=== PATIENT | female | born 1955 | race Caucasian/White ===

== ENCOUNTER 2022-10-02 14:59 | Inpatient (IN) ==
[2022-10-02] MEDS ORDERED: Morphine 4 MG/ML VIAL (1 ml) IV PRN (15:16)
[2022-10-02] MEDS ORDERED: Lactated Ringers 1000 ml BAG 1,000 ML IV ONE (15:16)
[2022-10-02] MEDS ORDERED: Iohexol 350 (CONTRAST) 500 ML MDV IV ONE (15:37)
[2022-10-02] MEDS ORDERED: Acetaminophen IV 1 GM/100ML 1,000 MG/100 ML BAG IV ONE (16:42)
[2022-10-02 17:08] LABS: Hematocrit 37 % (35-47); Hemoglobin 11.9 g/dL (12.0-16.0); Mean Corpuscular HGB Conc 33 g/dL (31-36); Mean Corpuscular Hemoglobin 32 pg (27-31); Mean Corpuscular Volume 99 fL (80-97); Mean Platelet Volume 7.2 fL (7.4-10.4); Platelet Count 485 10^3/uL (150-450); Red Blood Count 3.68 10^6 /uL (3.70-4.87); Red Cell Distribution Width 13 % (10-15)
[2022-10-02 17:18] LABS: Urine Appearance Cloudy; Urine Bilirubin Negative (Negative); Urine Blood Negative (Negative); Urine Color Amber; Urine Glucose Negative (Negative); Urine Ketones Negative (Negative); Urine Nitrite Negative (Negative); Urine Protein Negative (Negative); Urine Specific Gravity 1.014 (1.002-1.030); Urine Urobilinogen Negative (Negative)
[2022-10-02 17:22] LABS: Urine Bacteria Absent (Absent); Urine Red Blood Cell 1+(3-5/hpf) (Absent); Urine Squamous Epithelial Cell Present (Absent); Urine White Blood Cell 2+(11-20/hpf) (Absent)
[2022-10-02] MEDS ORDERED: Piperacillin/Tazobac ADVAN 3.375 GM in NS 0.9% 100 ml BAG 100 ML IV ONE (17:32)
[2022-10-02] MEDS ORDERED: Morphine 10 MG/ML VIAL (1 ml) IV ONE (17:32)
[2022-10-02 17:48] LABS: Albumin/Globulin Ratio 1.4 (1-3); C Reactive Protein 126.34 mg/L (<8.01); Calcium 7.9 mg/dL (8.6-10.3); Creatinine, Serum 0.65 mg/dL (0.51-0.95); Globulin 2.1 g/dL (2-4); Potassium 3.8 mmol/L (3.5-5.0); Total Bilirubin 0.4 mg/dL (0.2-1.0); Total Protein 5.1 g/dL (6.4-8.9)
[2022-10-02 18:24] LABS: ABS Basophils 0.1 10^3/ul (0-0.2); ABS Lymphocytes 0.7 10^3/ul (1.0-4.8); ABS Monocytes 1.2 10^3/ul (0-0.8); Eosinophil % 0.2 %; Lymphocyte % 3.7 %; Toxic Granulation 1+
[2022-10-02 18:27] LABS: RBC Morphology Normal (Normal)
[2022-10-02 18:28] LABS: Dohle Bodies Present
[2022-10-02] MEDS ORDERED: Albuterol HFA INHALER 8 gm MDI INH PRN (19:22)
[2022-10-02] MEDS: ZOSYN 3.375 GM Q8H per EXTENDED INFUSION IV SCH (22:28)
[2022-10-02] MEDS ORDERED: Piperacillin/Tazobactam VIAL 3.375 GM in NS 0.9% 100 ml BAG 100 ML IVPB SCH (23:45)
[2022-10-03] MEDS: Morphine 2 MG/ML SYRINGE IV PRN ×5 (01:04→15:37)
[2022-10-03 04:19] LABS: Hematocrit 37 % (35-47); Hemoglobin 12.2 g/dL (12.0-16.0); Mean Corpuscular HGB Conc 33 g/dL (31-36); Mean Corpuscular Hemoglobin 33 pg (27-31); Mean Corpuscular Volume 99 fL (80-97); Mean Platelet Volume 7.3 fL (7.4-10.4); Platelet Count 517 10^3/uL (150-450); Red Cell Distribution Width 13 % (10-15); White Blood Count 17.9 10^3/uL (3.5-10.8)
[2022-10-03 04:26] LABS: INR 1.35 (0.88-1.18)
[2022-10-03 04:27] LABS: ABS Basophils 0.1 10^3/ul (0-0.2); ABS Eosinophils 0.1 10^3/ul (0-0.6); ABS Lymphocytes 0.9 10^3/ul (1.0-4.8); ABS Neutrophils 15.8 10^3/ul (1.5-7.7); Eosinophil % 0.7 %; Lymphocyte % 5.1 %
[2022-10-03] MEDS: NS 0.9% 1000 ml BAG 1,000 ML IV SCH ×3 (04:43→23:15)
[2022-10-03 04:59] LABS: Creatinine, Serum 0.74 mg/dL (0.51-0.95); Potassium 4.1 mmol/L (3.5-5.0); eGFR CKD-EPI 89.2 (>60)
[2022-10-03] MEDS ORDERED: Piperacillin/Tazobac 3.375 GM BAG ONE (05:49)
[2022-10-03] MEDS: ZOSYN 3.375 GM Q8H per EXTENDED INFUSION IV SCH ×3 (06:06→23:11)
[2022-10-03] MEDS: diazePAM INJ CARPUJECT 5 MG/ML SYRINGE IV PRN ×2 (08:47→17:16)
[2022-10-03] MEDS: Ondansetron 4 mg VIAL 2 MG/ML 2 ml VIAL IV PRN (12:42)
[2022-10-03] MEDS ORDERED: fentaNYL 100 mcg/2 ml 50 MCG/ML VIAL ONE (13:11)
[2022-10-04] MEDS: Morphine 2 MG/ML SYRINGE IV PRN ×4 (03:46→20:12)
[2022-10-04] MEDS: ZOSYN 3.375 GM Q8H per EXTENDED INFUSION IV SCH ×3 (06:07→22:11)
[2022-10-04 06:13] LABS: Hematocrit 35 % (35-47); Hemoglobin 11.6 g/dL (12.0-16.0); Mean Corpuscular HGB Conc 33 g/dL (31-36); Mean Corpuscular Hemoglobin 33 pg (27-31); Mean Corpuscular Volume 100 fL (80-97); Mean Platelet Volume 7.2 fL (7.4-10.4); Platelet Count 518 10^3/uL (150-450); Red Blood Count 3.52 10^6 /uL (3.70-4.87); Red Cell Distribution Width 13 % (10-15); White Blood Count 13.8 10^3/uL (3.5-10.8)
[2022-10-04 06:26] LABS: Calcium 7.5 mg/dL (8.6-10.3); Creatinine, Serum 0.68 mg/dL (0.51-0.95)
[2022-10-04 07:32] LABS: ABS Eosinophils 0.1 10^3/ul (0-0.6); ABS Lymphocytes 0.8 10^3/ul (1.0-4.8); ABS Monocytes 0.9 10^3/ul (0-0.8); Eosinophil % 0.8 %; Lymphocyte % 5.6 %
[2022-10-04] MEDS: NS 0.9% 1000 ml BAG 1,000 ML IV SCH ×2 (10:02→20:10)
[2022-10-04] MEDS: diazePAM INJ CARPUJECT 5 MG/ML SYRINGE IV PRN (22:01)
[2022-10-05] MEDS: NS 0.9% 1000 ml BAG 1,000 ML IV SCH (06:25)
[2022-10-05] MEDS: ZOSYN 3.375 GM Q8H per EXTENDED INFUSION IV SCH ×3 (06:27→23:07)
[2022-10-05] MEDS ORDERED: Fluconazole 400 MG IVPREMIX 400 MG/200 ML BAG IVPB SCH (15:00)
[2022-10-05] MEDS: Fluconazole 400 MG IVPREMIX 400 MG/200 ML BAG IVPB SCH (20:32)
[2022-10-06] MEDS: ZOSYN 3.375 GM Q8H per EXTENDED INFUSION IV SCH ×2 (05:29→14:20)
[2022-10-06 06:00] LABS: Hematocrit 34 % (35-47); Hemoglobin 11.6 g/dL (12.0-16.0); Mean Corpuscular HGB Conc 34 g/dL (31-36); Mean Corpuscular Hemoglobin 33 pg (27-31); Mean Corpuscular Volume 97 fL (80-97); Mean Platelet Volume 7.3 fL (7.4-10.4); Platelet Count 595 10^3/uL (150-450); Red Blood Count 3.55 10^6 /uL (3.70-4.87); Red Cell Distribution Width 13 % (10-15); White Blood Count 10.8 10^3/uL (3.5-10.8)
[2022-10-06 06:13] LABS: C Reactive Protein 80.84 mg/L (<8.01); Creatinine, Serum 0.54 mg/dL (0.51-0.95); eGFR CKD-EPI 101.5 (>60)
[2022-10-06 06:47] LABS: ABS Basophils 0.1 10^3/ul (0-0.2); ABS Eosinophils 0.2 10^3/ul (0-0.6); ABS Neutrophils 8.6 10^3/ul (1.5-7.7); Eosinophil % 1.4 %; Lymphocyte % 9.1 %; Nucleated Red Blood Cells % 0.1
[2022-10-06] MEDS: Fluconazole 400 MG IVPREMIX 400 MG/200 ML BAG IVPB SCH (21:00)
[2022-10-07] MEDS: ZOSYN 3.375 GM Q8H per EXTENDED INFUSION IV SCH ×4 (01:28→22:50)
[2022-10-07] MEDS ORDERED: Iohexol 350 (CONTRAST) 500 ML MDV IV ONE (07:33)
[2022-10-07] MEDS: Ondansetron 4 mg VIAL 2 MG/ML 2 ml VIAL IV PRN (07:41)
[2022-10-07] MEDS: NS 0.9% 1000 ml BAG 1,000 ML IV SCH (18:08)
[2022-10-07] MEDS: Fluconazole 400 MG IVPREMIX 400 MG/200 ML BAG IVPB SCH (19:49)
[2022-10-08] MEDS: ZOSYN 3.375 GM Q8H per EXTENDED INFUSION IV SCH ×4 (04:51→22:30)
[2022-10-08 06:07] LABS: ABS Basophils 0.1 10^3/ul (0-0.2); ABS Eosinophils 0.2 10^3/ul (0-0.6); ABS Lymphocytes 0.9 10^3/ul (1.0-4.8); ABS Monocytes 0.9 10^3/ul (0-0.8); ABS Neutrophils 7.9 10^3/ul (1.5-7.7); Eosinophil % 1.8 %; Hematocrit 33 % (35-47); Hemoglobin 11.1 g/dL (12.0-16.0); Lymphocyte % 9.3 %; Mean Corpuscular HGB Conc 34 g/dL (31-36); Mean Corpuscular Hemoglobin 33 pg (27-31); Mean Corpuscular Volume 99 fL (80-97); Mean Platelet Volume 7.1 fL (7.4-10.4); Platelet Count 592 10^3/uL (150-450); Red Blood Count 3.35 10^6 /uL (3.70-4.87); Red Cell Distribution Width 13 % (10-15); White Blood Count 9.9 10^3/uL (3.5-10.8)
[2022-10-08 06:27] LABS: C Reactive Protein 54.21 mg/L (<8.01); Calcium 8.2 mg/dL (8.6-10.3); Creatinine, Serum 0.66 mg/dL (0.51-0.95); Potassium 4.5 mmol/L (3.5-5.0); eGFR CKD-EPI 96.7 (>60)
[2022-10-08] MEDS: NS 0.9% 1000 ml BAG 1,000 ML IV SCH (10:45)
[2022-10-08] MEDS: Morphine 2 MG/ML SYRINGE IV PRN ×3 (10:45→20:49)
[2022-10-08 11:19] LABS: Rapid COVID-19 Molecular Undetected (Undetected)
[2022-10-08] MEDS ORDERED: D5W 1/2 NS 1000 ml BAG 1,000 ML IV SCH (12:00)
[2022-10-08] MEDS ORDERED: Naloxone 0.4 mg VIAL 0.4 mg/ml 1 ml VIAL IV PRN (13:20)
[2022-10-08] MEDS: Enoxaparin 40 MG/0.4 ML SYR SUBCUT SCH ×2 (17:34→17:41)
[2022-10-08] MEDS: Fluconazole 400 MG IVPREMIX 400 MG/200 ML BAG IVPB SCH (20:36)
[2022-10-09] MEDS: D5W 1/2 NS 1000 ml BAG 1,000 ML IV SCH (01:40)
[2022-10-09] MEDS: Morphine 2 MG/ML SYRINGE IV PRN (03:40)
[2022-10-09] MEDS ORDERED: Lactated Ringers 1000 ml BAG 1,000 ML IV SCH ×2 (06:00→13:00)
[2022-10-09] MEDS ORDERED: Buffered Lidocaine 1% SYRIN 1 ml INTRADERM ONE (06:00)
[2022-10-09] MEDS: ZOSYN 3.375 GM Q8H per EXTENDED INFUSION IV SCH ×3 (06:39→21:44)
[2022-10-09] MEDS: Calcium Carb (TUMS) 500 mg CHEW TAB PO PRN (09:09)
[2022-10-09] MEDS ORDERED: fentaNYL 250 mcg/5 ml 50 MCG/ML 5 ml VIAL (250 MCG) ONE (11:57)
[2022-10-09] MEDS ORDERED: Rocuronium 50 mg VIAL 10 mg/ml 5 ml VIAL (50 mg) ONE ×3 (11:57→14:34)
[2022-10-09] MEDS ORDERED: Dexamethasone IV 4 MG/ML VIAL 1 ml VIAL ONE ×2 (11:58→12:45)
[2022-10-09] MEDS ORDERED: Ondansetron 4 mg VIAL 2 MG/ML 2 ml VIAL ONE ×2 (11:58→12:45)
[2022-10-09] MEDS ORDERED: Midazolam 2 mg/2 ml VIAL 1 mg/ml 2 ml VIAL (2 mg) ONE ×2 (11:58→12:43)
[2022-10-09] MEDS ORDERED: Propofol 10 MG/ML 20 ML BTL ONE ×2 (12:04→12:45)
[2022-10-09] MEDS ORDERED: Lidocaine 2% PF 5 ML VIAL ONE (12:04)
[2022-10-09] MEDS ORDERED: Famotidine IV 10 MG/ML 2 ml VIAL (20 mg) IV ONE (12:41)
[2022-10-09] MEDS ORDERED: fentaNYL 100 mcg/2 ml 50 MCG/ML VIAL ONE ×3 (12:43→18:01)
[2022-10-09] MEDS ORDERED: Famotidine IV 10 MG/ML 2 ml VIAL (20 mg) ONE (12:46)
[2022-10-09] MEDS ORDERED: Bupivacaine 0.5% SDV PF 30ML VIAL ONE (12:54)
[2022-10-09] MEDS ORDERED: HYDROmorphone 0.5 MG/0.5 ML SYRINGE ONE ×3 (14:50→16:20)
[2022-10-09] MEDS ORDERED: Acetaminophen IV 1 GM/100ML 1,000 MG/100 ML BAG IV ONE (16:24)
[2022-10-09] MEDS ORDERED: HYDROmorphone 1 MG/1 ML SYRINGE ONE (16:39)
[2022-10-09] MEDS: HYDROmorphone 1 MG/1 ML SYRINGE IV PRN ×2 (16:40→16:52)
[2022-10-09] MEDS: fentaNYL 100 mcg/2 ml 50 MCG/ML VIAL IV PRN ×5 (17:11→18:02)
[2022-10-09] MEDS ORDERED: Morphine 4 MG/ML VIAL (1 ml) ONE (18:14)
[2022-10-09] MEDS: Morphine 4 MG/ML VIAL (1 ml) IV PRN ×2 (18:15→18:56)
[2022-10-09] MEDS: NS 0.9% 1000 ml BAG 1,000 ML IV SCH (21:40)
[2022-10-09] MEDS: Enoxaparin 40 MG/0.4 ML SYR SUBCUT SCH (21:49)
[2022-10-10] MEDS: Fluconazole 400 MG IVPREMIX 400 MG/200 ML BAG IVPB SCH ×2 (03:04→19:17)
[2022-10-10] MEDS: ZOSYN 3.375 GM Q8H per EXTENDED INFUSION IV SCH ×3 (05:50→22:16)
[2022-10-10 09:14] LABS: ABS Lymphocytes 0.9 10^3/ul (1.0-4.8); ABS Monocytes 0.4 10^3/ul (0-0.8); ABS Neutrophils 15.3 10^3/ul (1.5-7.7); Hematocrit 34 % (35-47); Hemoglobin 11.2 g/dL (12.0-16.0); Lymphocyte % 5.5 %; Mean Corpuscular HGB Conc 33 g/dL (31-36); Mean Corpuscular Hemoglobin 32 pg (27-31); Mean Corpuscular Volume 99 fL (80-97); Platelet Count 615 10^3/uL (150-450); Red Blood Count 3.47 10^6 /uL (3.70-4.87); Red Cell Distribution Width 13 % (10-15); White Blood Count 16.7 10^3/uL (3.5-10.8)
[2022-10-10] MEDS: Enoxaparin 40 MG/0.4 ML SYR SUBCUT SCH (09:43)
[2022-10-10 09:50] LABS: Calcium 8.5 mg/dL (8.6-10.3); Potassium 4.4 mmol/L (3.5-5.0)
[2022-10-10 12:00] LABS: Creatinine, Serum 0.72 mg/dL (0.51-0.95); eGFR CKD-EPI 92.2 (>60)
[2022-10-10] MEDS: D5W 1/2 NS 1000 ml BAG 1,000 ML IV SCH (18:44)
[2022-10-11 05:47] LABS: ABS Eosinophils 0.1 10^3/ul (0-0.6); ABS Lymphocytes 1.2 10^3/ul (1.0-4.8); ABS Monocytes 0.6 10^3/ul (0-0.8); ABS Neutrophils 10.2 10^3/ul (1.5-7.7); Eosinophil % 0.5 %; Hematocrit 29 % (35-47); Hemoglobin 9.7 g/dL (12.0-16.0); Lymphocyte % 10.1 %; Mean Corpuscular HGB Conc 34 g/dL (31-36); Mean Corpuscular Hemoglobin 33 pg (27-31); Mean Corpuscular Volume 99 fL (80-97); Mean Platelet Volume 7.1 fL (7.4-10.4); Platelet Count 536 10^3/uL (150-450); Red Blood Count 2.89 10^6 /uL (3.70-4.87); Red Cell Distribution Width 13 % (10-15); White Blood Count 12.1 10^3/uL (3.5-10.8)
[2022-10-11 06:01] LABS: Calcium 8.1 mg/dL (8.6-10.3); Creatinine, Serum 0.69 mg/dL (0.51-0.95); Magnesium 1.7 mg/dL (1.9-2.7); Potassium 4.2 mmol/L (3.5-5.0); eGFR CKD-EPI 95.7 (>60)
[2022-10-11] MEDS: ZOSYN 3.375 GM Q8H per EXTENDED INFUSION IV SCH ×3 (06:03→22:52)
[2022-10-11] MEDS: Enoxaparin 40 MG/0.4 ML SYR SUBCUT SCH (09:11)
[2022-10-11] MEDS: D5W 1/2 NS 1000 ml BAG 1,000 ML IV SCH (09:21)
[2022-10-11] MEDS ORDERED: Magnesium Sulfate 2 gm BAG 2 GM/50 ML BAG IVPB ONE (12:50)
[2022-10-11] MEDS: Fluconazole 400 MG IVPREMIX 400 MG/200 ML BAG IVPB SCH (20:06)
[2022-10-11] MEDS: Morphine 2 MG/ML SYRINGE IV PRN (22:52)
[2022-10-12] MEDS: ZOSYN 3.375 GM Q8H per EXTENDED INFUSION IV SCH ×3 (05:26→23:12)
[2022-10-12] MEDS: Enoxaparin 40 MG/0.4 ML SYR SUBCUT SCH (08:32)
[2022-10-12] MEDS: Morphine 2 MG/ML SYRINGE IV PRN ×3 (11:30→22:49)
[2022-10-12] MEDS: Calcium Carb (TUMS) 500 mg CHEW TAB PO PRN (20:40)
[2022-10-12] MEDS: Fluconazole 400 MG IVPREMIX 400 MG/200 ML BAG IVPB SCH (20:41)
[2022-10-13] MEDS: Calcium Carb (TUMS) 500 mg CHEW TAB PO PRN ×2 (01:38→05:48)
[2022-10-13] MEDS: ZOSYN 3.375 GM Q8H per EXTENDED INFUSION IV SCH ×3 (05:45→21:52)
[2022-10-13] MEDS: Magnesium Hydroxide LIQ 30 ML UDC PO PRN ×2 (09:13→20:02)
[2022-10-13] MEDS: Enoxaparin 40 MG/0.4 ML SYR SUBCUT SCH (09:15)
[2022-10-13] MEDS: Fluconazole 400 MG IVPREMIX 400 MG/200 ML BAG IVPB SCH (19:28)
[2022-10-14] MEDS: Calcium Carb (TUMS) 500 mg CHEW TAB PO PRN ×4 (02:28→23:35)
[2022-10-14] MEDS: ZOSYN 3.375 GM Q8H per EXTENDED INFUSION IV SCH ×3 (06:03→22:09)
[2022-10-14] MEDS: Enoxaparin 40 MG/0.4 ML SYR SUBCUT SCH (07:38)
[2022-10-14 12:02] LABS: Hematocrit 34 % (35-47); Hemoglobin 11.7 g/dL (12.0-16.0); Mean Corpuscular HGB Conc 34 g/dL (31-36); Mean Corpuscular Hemoglobin 33 pg (27-31); Mean Corpuscular Volume 96 fL (80-97); Mean Platelet Volume 6.9 fL (7.4-10.4); Platelet Count 513 10^3/uL (150-450); Red Blood Count 3.55 10^6 /uL (3.70-4.87); Red Cell Distribution Width 13 % (10-15); White Blood Count 11.8 10^3/uL (3.5-10.8)
[2022-10-14 12:38] LABS: Albumin 3.3 g/dL (3.2-5.2); Albumin/Globulin Ratio 1.3 (1-3); Calcium 8.7 mg/dL (8.6-10.3); Creatinine, Serum 0.66 mg/dL (0.51-0.95); Globulin 2.5 g/dL (2-4); Potassium 4.5 mmol/L (3.5-5.0); Total Bilirubin 0.4 mg/dL (0.2-1.0); Total Protein 5.8 g/dL (6.4-8.9); eGFR CKD-EPI 96.7 (>60)
[2022-10-14 13:04] LABS: ABS Basophils 0.1 10^3/ul (0-0.2); ABS Eosinophils 0.2 10^3/ul (0-0.6); ABS Lymphocytes 0.7 10^3/ul (1.0-4.8); ABS Monocytes 0.6 10^3/ul (0-0.8); ABS Neutrophils 10.3 10^3/ul (1.5-7.7); Eosinophil % 1.7 %; Nucleated Red Blood Cells % 0.1
[2022-10-14] MEDS: Heparin 5000 UNITS/ML 1 mL VIAL SUBCUT SCH ×2 (14:08→21:23)
[2022-10-14] MEDS: Fluconazole 400 MG IVPREMIX 400 MG/200 ML BAG IVPB SCH (19:51)
[2022-10-14] MEDS: Magnesium Hydroxide LIQ 30 ML UDC PO PRN (21:22)
[2022-10-15] MEDS: Heparin 5000 UNITS/ML 1 mL VIAL SUBCUT SCH (05:58)
[2022-10-15] MEDS: ZOSYN 3.375 GM Q8H per EXTENDED INFUSION IV SCH (05:58)
[2022-10-15 06:00] LABS: ABS Basophils 0.1 10^3/ul (0-0.2); ABS Eosinophils 0.2 10^3/ul (0-0.6); ABS Lymphocytes 1.1 10^3/ul (1.0-4.8); ABS Monocytes 0.8 10^3/ul (0-0.8); ABS Neutrophils 6.8 10^3/ul (1.5-7.7); Eosinophil % 2.8 %; Hematocrit 34 % (35-47); Hemoglobin 11.3 g/dL (12.0-16.0); Mean Corpuscular HGB Conc 33 g/dL (31-36); Mean Corpuscular Hemoglobin 33 pg (27-31); Mean Corpuscular Volume 98 fL (80-97); Mean Platelet Volume 7.3 fL (7.4-10.4); Platelet Count 459 10^3/uL (150-450); Red Blood Count 3.47 10^6 /uL (3.70-4.87); Red Cell Distribution Width 13 % (10-15); White Blood Count 8.9 10^3/uL (3.5-10.8)
[2022-10-15 06:10] LABS: INR 1.2 (0.88-1.18)
[2022-10-15 06:19] LABS: Calcium 8.6 mg/dL (8.6-10.3); Creatinine, Serum 0.67 mg/dL (0.51-0.95); Potassium 4.3 mmol/L (3.5-5.0); eGFR CKD-EPI 96.3 (>60)
[2022-10-15 07:47] VITALS: BP 133/75
== END 2022-10-15 12:19 | disposition home or self-care (01) | DRG 330 ==
LOC: ED 14:59 → EDHOLD 19:11 → SSU 10-03 12:10
PROVIDERS: ADMIT Surgery; ATTEND Surgery

== ENCOUNTER 2022-10-16 20:34 | Inpatient (IN) ==
[2022-10-16] MEDS ORDERED: Droperidol 5 MG/2 ML 2 ML VIAL IV ONE (21:24)
[2022-10-16] MEDS ORDERED: Morphine 4 MG/ML VIAL (1 ml) IV ONE (21:24)
[2022-10-16] MEDS ORDERED: Lactated Ringers 1000 ml BAG 1,000 ML IV ONE (21:24)
[2022-10-16] MEDS ORDERED: Morphine 4 MG/ML VIAL (1 ml) IV PRN (21:24)
[2022-10-16 22:20] LABS: ALT 21 U/L (7-52); AST 32 U/L (13-39); Albumin 3.6 g/dL (3.2-5.2); Albumin/Globulin Ratio 1.2 (1-3); Alkaline Phosphatase 62 U/L (35-149); Anion Gap 6 mmol/L (2-11); Blood Urea Nitrogen 10 mg/dL (6-24); C Reactive Protein 139.48 mg/L (<8.01); CO2 Carbon Dioxide 28 mmol/L (22-32); Calcium 8.8 mg/dL (8.6-10.3); Chloride 96 mmol/L (101-111); Creatinine, Serum 0.66 mg/dL (0.51-0.95); Glucose 105 mg/dL (70-100); Lipase < 10 U/L (11.0-82.0); Potassium 4.4 mmol/L (3.5-5.0); Sodium 130 mmol/L (135-145); Total Protein 6.6 g/dL (6.4-8.9); eGFR CKD-EPI 96.7 (>60)
[2022-10-16] MEDS ORDERED: Iohexol 350 (CONTRAST) 500 ML MDV IV ONE (22:22)
[2022-10-16 22:43] LABS: Hematocrit 38 % (35-47); Hemoglobin 13.1 g/dL (12.0-16.0); Mean Corpuscular HGB Conc 35 g/dL (31-36); Mean Corpuscular Hemoglobin 34 pg (27-31); Mean Corpuscular Volume 97 fL (80-97); Platelet Count Platelets clumped. 10^3/uL (150-450); Red Blood Count 3.89 10^6 /uL (3.70-4.87); Red Cell Distribution Width 14 % (10-15); White Blood Count 19.9 10^3/uL (3.5-10.8)
[2022-10-16 22:44] LABS: ABS Basophils 0.1 10^3/ul (0-0.2); ABS Eosinophils 0.3 10^3/ul (0-0.6); ABS Lymphocytes 1.1 10^3/ul (1.0-4.8); ABS Monocytes 0.7 10^3/ul (0-0.8); ABS Neutrophils 17.7 10^3/ul (1.5-7.7); Eosinophil % 1.4 %; Lymphocyte % 5.5 %
[2022-10-16] MEDS ORDERED: oxyCODONE/Acetamin 5/325 mg TAB PO PRN (22:45)
[2022-10-16] MEDS ORDERED: Ondansetron 4 mg VIAL 2 MG/ML 2 ml VIAL IV PRN (22:45)
[2022-10-17] MEDS: NS 0.9% 1000 ml BAG 1,000 ML IV SCH ×3 (00:24→22:16)
[2022-10-17 00:33] LABS: Urine Appearance Cloudy; Urine Bilirubin Negative (Negative); Urine Blood Negative (Negative); Urine Color Yellow; Urine Glucose Negative (Negative); Urine Ketones Negative (Negative); Urine Nitrite Negative (Negative); Urine Protein Negative (Negative); Urine Specific Gravity 1.027 (1.002-1.030); Urine Urobilinogen Negative (Negative)
[2022-10-17] MEDS ORDERED: HYDROmorphone 1 MG/1 ML SYRINGE ONE ×2 (02:29→16:27)
[2022-10-17] MEDS: HYDROmorphone 1 MG/1 ML SYRINGE IV SLOW PU PRN ×4 (02:31→08:46)
[2022-10-17] MEDS ORDERED: Piperacillin/Tazobac ADVAN 3.375 GM in NS 0.9% 100 ml BAG 100 ML IV SCH (03:00)
[2022-10-17] MEDS: Piperacillin/Tazobac ADVAN 3.375 GM in NS 0.9% 100 ml BAG 100 ML IV SCH ×3 (04:06→21:08)
[2022-10-17 04:13] LABS: ABS Basophils 0.1 10^3/ul (0-0.2); ABS Eosinophils 0.2 10^3/ul (0-0.6); ABS Lymphocytes 1.4 10^3/ul (1.0-4.8); ABS Monocytes 0.8 10^3/ul (0-0.8); ABS Neutrophils 12.6 10^3/ul (1.5-7.7); Eosinophil % 1.1 %; Hematocrit 33 % (35-47); Hemoglobin 10.8 g/dL (12.0-16.0); Lymphocyte % 9.2 %; Mean Corpuscular HGB Conc 33 g/dL (31-36); Mean Corpuscular Hemoglobin 32 pg (27-31); Mean Corpuscular Volume 97 fL (80-97); Nucleated Red Blood Cells % 0.1; Platelet Count 486 10^3/uL (150-450); Red Blood Count 3.37 10^6 /uL (3.70-4.87); Red Cell Distribution Width 14 % (10-15); White Blood Count 15.1 10^3/uL (3.5-10.8)
[2022-10-17 04:52] LABS: Albumin 3.1 g/dL (3.2-5.2); Albumin/Globulin Ratio 1.2 (1-3); C Reactive Protein 136.32 mg/L (<8.01); Calcium 8.2 mg/dL (8.6-10.3); Creatinine, Serum 0.57 mg/dL (0.51-0.95); Globulin 2.5 g/dL (2-4); Potassium 4.3 mmol/L (3.5-5.0); Total Bilirubin 0.5 mg/dL (0.2-1.0); Total Protein 5.6 g/dL (6.4-8.9); eGFR CKD-EPI 100.2 (>60)
[2022-10-17] MEDS: Fluconazole 400 MG IVPREMIX 400 MG/200 ML BAG IVPB SCH (08:45)
[2022-10-17] MEDS ORDERED: Naloxone 0.4 mg VIAL 0.4 mg/ml 1 ml VIAL IV PUSH SCH (09:00)
[2022-10-17] MEDS ORDERED: Enoxaparin 40 MG/0.4 ML SYR SUBCUT SCH (09:00)
[2022-10-17 09:21] LABS: Urine Appearance Cloudy; Urine Bilirubin Negative (Negative); Urine Blood Negative (Negative); Urine Color Yellow; Urine Glucose Negative (Negative); Urine Ketones Negative (Negative); Urine Nitrite Negative (Negative); Urine Protein Negative (Negative); Urine Specific Gravity 1.025 (1.002-1.030); Urine Urobilinogen Negative (Negative)
[2022-10-17] MEDS ORDERED: Acetaminophen IV 1 GM/100ML 1,000 MG/100 ML BAG IV PRN (09:31)
[2022-10-17] MEDS ORDERED: HYDROmorphone 1 MG/1 ML SYRINGE IV SLOW PU PRN (09:36)
[2022-10-17] MEDS ORDERED: Rocuronium 50 mg VIAL 10 mg/ml 5 ml VIAL (50 mg) ONE ×2 (11:40→14:36)
[2022-10-17] MEDS ORDERED: Succinylcholine 200 mg VIAL 20 mg/ml 10 ml VIAL (200 mg) ONE (11:40)
[2022-10-17] MEDS ORDERED: Lidocaine 2% PF 5 ML VIAL ONE (11:40)
[2022-10-17] MEDS ORDERED: fentaNYL 250 mcg/5 ml 50 MCG/ML 5 ml VIAL (250 MCG) ONE (11:40)
[2022-10-17] MEDS ORDERED: Propofol 10 MG/ML 20 ML BTL ONE (11:40)
[2022-10-17] MEDS ORDERED: Sodium Citrate/Citric Acid LIQ 15 ML UDC PO ONE (11:50)
[2022-10-17] MEDS ORDERED: Naloxone 0.4 mg VIAL 0.4 mg/ml 1 ml VIAL IV PRN (11:50)
[2022-10-17] MEDS ORDERED: Buffered Lidocaine 1% SYRIN 1 ml INTRADERM ONE (11:50)
[2022-10-17] MEDS ORDERED: Famotidine IV 10 MG/ML 2 ml VIAL (20 mg) IV ONE (11:50)
[2022-10-17] MEDS ORDERED: Sodium Citrate/Citric Acid LIQ 15 ML UDC ONE (11:52)
[2022-10-17] MEDS ORDERED: Famotidine IV 10 MG/ML 2 ml VIAL (20 mg) ONE (11:54)
[2022-10-17] MEDS ORDERED: Lactated Ringers 1000 ml BAG 1,000 ML IV SCH (12:00)
[2022-10-17] MEDS ORDERED: Phenylephrine 40 mcg/mL 10mL (400mcg) SYRINGE ONE (12:35)
[2022-10-17] MEDS ORDERED: Bupivacaine 0.5% 50 ML MDV VIAL ONE (13:05)
[2022-10-17] MEDS ORDERED: fentaNYL 100 mcg/2 ml 50 MCG/ML VIAL ONE ×3 (14:37→16:25)
[2022-10-17] MEDS ORDERED: Acetaminophen IV 1 GM/100ML 1,000 MG/100 ML BAG IV ONE ×2 (15:23→17:31)
[2022-10-17] MEDS ORDERED: Ondansetron 4 mg VIAL 2 MG/ML 2 ml VIAL ONE ×2 (15:26→16:58)
[2022-10-17] MEDS ORDERED: Naloxone 0.4 mg VIAL 0.4 mg/ml 1 ml VIAL IV PUSH PRN (16:17)
[2022-10-17] MEDS: fentaNYL 100 mcg/2 ml 50 MCG/ML VIAL IV PRN ×4 (16:19→16:41)
[2022-10-17] MEDS: HYDROmorphone 1 MG/1 ML SYRINGE IV PRN ×4 (16:28→17:24)
[2022-10-17] MEDS: HYDROmorphone PCA 20 MG/20 ML PCA.SYRING PCA SCH (16:47)
[2022-10-17] MEDS ORDERED: Ondansetron 4 mg VIAL 2 MG/ML 2 ml VIAL IV ONE (17:01)
[2022-10-17] MEDS: Acetaminophen IV 1 GM/100ML 1,000 MG/100 ML BAG IV SCH (17:31)
[2022-10-17] MEDS: Enoxaparin 40 MG/0.4 ML SYR SUBCUT SCH (21:10)
[2022-10-18] MEDS: Acetaminophen IV 1 GM/100ML 1,000 MG/100 ML BAG IV SCH ×4 (01:57→20:29)
[2022-10-18] MEDS: Piperacillin/Tazobac ADVAN 3.375 GM in NS 0.9% 100 ml BAG 100 ML IV SCH ×3 (03:57→21:01)
[2022-10-18 06:11] LABS: ABS Eosinophils 0.1 10^3/ul (0-0.6); ABS Lymphocytes 0.6 10^3/ul (1.0-4.8); ABS Monocytes 0.4 10^3/ul (0-0.8); ABS Neutrophils 8.7 10^3/ul (1.5-7.7); Eosinophil % 0.6 %; Hematocrit 29 % (35-47); Hemoglobin 9.8 g/dL (12.0-16.0); Mean Corpuscular HGB Conc 34 g/dL (31-36); Mean Corpuscular Hemoglobin 33 pg (27-31); Mean Corpuscular Volume 98 fL (80-97); Mean Platelet Volume 7.4 fL (7.4-10.4); Platelet Count 468 10^3/uL (150-450); Red Blood Count 2.99 10^6 /uL (3.70-4.87); Red Cell Distribution Width 14 % (10-15); White Blood Count 9.8 10^3/uL (3.5-10.8)
[2022-10-18 06:29] LABS: Calcium 7.3 mg/dL (8.6-10.3); Creatinine, Serum 0.8 mg/dL (0.51-0.95); Potassium 4.5 mmol/L (3.5-5.0); eGFR CKD-EPI 81.2 (>60)
[2022-10-18] MEDS: D5W 1/2 NS 1000 ml BAG 1,000 ML IV SCH ×2 (08:39→16:55)
[2022-10-18] MEDS: Fluconazole 400 MG IVPREMIX 400 MG/200 ML BAG IVPB SCH (09:02)
[2022-10-18] MEDS ORDERED: Albuterol HFA INHALER 8 gm MDI INH PRN (09:05)
[2022-10-18] MEDS: Enoxaparin 40 MG/0.4 ML SYR SUBCUT SCH (20:29)
[2022-10-19] MEDS: D5W 1/2 NS 1000 ml BAG 1,000 ML IV SCH (01:30)
[2022-10-19] MEDS ORDERED: Calcium Carb (TUMS) 500 mg CHEW TAB PO ONE ×2 (01:39)
[2022-10-19] MEDS: Acetaminophen IV 1 GM/100ML 1,000 MG/100 ML BAG IV SCH ×4 (02:08→20:24)
[2022-10-19] MEDS: HYDROmorphone PCA 20 MG/20 ML PCA.SYRING PCA SCH (03:11)
[2022-10-19] MEDS: Piperacillin/Tazobac ADVAN 3.375 GM in NS 0.9% 100 ml BAG 100 ML IV SCH ×3 (04:22→20:32)
[2022-10-19 06:38] LABS: ABS Eosinophils 0.3 10^3/ul (0-0.6); ABS Lymphocytes 0.6 10^3/ul (1.0-4.8); ABS Monocytes 0.4 10^3/ul (0-0.8); ABS Neutrophils 6.4 10^3/ul (1.5-7.7); Eosinophil % 4.2 %; Hematocrit 25 % (35-47); Hemoglobin 8.3 g/dL (12.0-16.0); Lymphocyte % 7.9 %; Mean Corpuscular HGB Conc 34 g/dL (31-36); Mean Corpuscular Hemoglobin 33 pg (27-31); Mean Corpuscular Volume 98 fL (80-97); Mean Platelet Volume 7.4 fL (7.4-10.4); Platelet Count 464 10^3/uL (150-450); Red Blood Count 2.52 10^6 /uL (3.70-4.87); Red Cell Distribution Width 14 % (10-15); White Blood Count 7.8 10^3/uL (3.5-10.8)
[2022-10-19 06:56] LABS: Calcium 7.4 mg/dL (8.6-10.3); Creatinine, Serum 0.8 mg/dL (0.51-0.95); eGFR CKD-EPI 81.2 (>60)
[2022-10-19] MEDS: Fluconazole 400 MG IVPREMIX 400 MG/200 ML BAG IVPB SCH (10:25)
[2022-10-19] MEDS: Calcium Carb (TUMS) 500 mg CHEW TAB PO PRN ×2 (16:55→20:08)
[2022-10-19] MEDS: Enoxaparin 40 MG/0.4 ML SYR SUBCUT SCH (20:32)
[2022-10-20] MEDS: Acetaminophen IV 1 GM/100ML 1,000 MG/100 ML BAG IV SCH ×2 (01:16→09:11)
[2022-10-20] MEDS: Piperacillin/Tazobac ADVAN 3.375 GM in NS 0.9% 100 ml BAG 100 ML IV SCH ×3 (04:04→19:50)
[2022-10-20 05:44] LABS: ABS Basophils 0.1 10^3/ul (0-0.2); ABS Eosinophils 0.4 10^3/ul (0-0.6); ABS Lymphocytes 0.9 10^3/ul (1.0-4.8); ABS Monocytes 0.4 10^3/ul (0-0.8); ABS Neutrophils 6.2 10^3/ul (1.5-7.7); Eosinophil % 4.6 %; Hematocrit 25 % (35-47); Hemoglobin 8.5 g/dL (12.0-16.0); Lymphocyte % 11.1 %; Mean Corpuscular HGB Conc 34 g/dL (31-36); Mean Corpuscular Hemoglobin 33 pg (27-31); Mean Corpuscular Volume 97 fL (80-97); Mean Platelet Volume 7.2 fL (7.4-10.4); Platelet Count 557 10^3/uL (150-450); Red Blood Count 2.59 10^6 /uL (3.70-4.87); Red Cell Distribution Width 13 % (10-15)
[2022-10-20 06:17] LABS: Calcium 7.4 mg/dL (8.6-10.3); Creatinine, Serum 0.47 mg/dL (0.51-0.95); Potassium 4.2 mmol/L (3.5-5.0); eGFR CKD-EPI 104.9 (>60)
[2022-10-20] MEDS: Calcium Carb (TUMS) 500 mg CHEW TAB PO PRN ×3 (09:11→21:29)
[2022-10-20] MEDS: Fluconazole 400 MG IVPREMIX 400 MG/200 ML BAG IVPB SCH (09:42)
[2022-10-20] MEDS: HYDROmorphone 0.5 MG/0.5 ML SYRINGE IV SLOW PU PRN ×2 (16:44→19:40)
[2022-10-20] MEDS: Enoxaparin 40 MG/0.4 ML SYR SUBCUT SCH (21:14)
[2022-10-21] MEDS: HYDROmorphone 0.5 MG/0.5 ML SYRINGE IV SLOW PU PRN ×3 (00:53→23:23)
[2022-10-21] MEDS: Piperacillin/Tazobac ADVAN 3.375 GM in NS 0.9% 100 ml BAG 100 ML IV SCH ×3 (04:16→20:08)
[2022-10-21] MEDS: Calcium Carb (TUMS) 500 mg CHEW TAB PO PRN ×2 (07:34→13:58)
[2022-10-21] MEDS: Fluconazole 400 MG IVPREMIX 400 MG/200 ML BAG IVPB SCH (08:01)
[2022-10-21] MEDS: Enoxaparin 40 MG/0.4 ML SYR SUBCUT SCH (20:16)
[2022-10-22] MEDS: Piperacillin/Tazobac ADVAN 3.375 GM in NS 0.9% 100 ml BAG 100 ML IV SCH ×3 (03:38→20:31)
[2022-10-22] MEDS: Fluconazole 400 MG IVPREMIX 400 MG/200 ML BAG IVPB SCH (07:57)
[2022-10-22] MEDS: Calcium Carb (TUMS) 500 mg CHEW TAB PO PRN (09:52)
[2022-10-22] MEDS: HYDROmorphone 0.5 MG/0.5 ML SYRINGE IV SLOW PU PRN (10:43)
[2022-10-22] MEDS: Enoxaparin 40 MG/0.4 ML SYR SUBCUT SCH (20:31)
[2022-10-23] MEDS: Calcium Carb (TUMS) 500 mg CHEW TAB PO PRN (03:25)
[2022-10-23] MEDS: Piperacillin/Tazobac ADVAN 3.375 GM in NS 0.9% 100 ml BAG 100 ML IV SCH ×3 (03:30→19:39)
[2022-10-23] MEDS: Fluconazole 400 MG IVPREMIX 400 MG/200 ML BAG IVPB SCH (08:30)
[2022-10-23] MEDS: HYDROmorphone 0.5 MG/0.5 ML SYRINGE IV SLOW PU PRN ×2 (10:12→19:36)
[2022-10-23] MEDS: Enoxaparin 40 MG/0.4 ML SYR SUBCUT SCH (22:10)
[2022-10-24] MEDS: Calcium Carb (TUMS) 500 mg CHEW TAB PO PRN ×2 (07:51→13:47)
[2022-10-24] MEDS: Enoxaparin 40 MG/0.4 ML SYR SUBCUT SCH (20:52)
[2022-10-25 07:17] VITALS: BP 140/66
== END 2022-10-25 12:15 | disposition home or self-care (01) | DRG 331 ==
LOC: ED 20:34 → EDHOLD 20:34 → OBSVTOIN 22:45 → MED 10-17 03:29 → SSU 10-17 14:26
PROVIDERS: ADMIT Surgery; ATTEND Surgery Surgical Critical Care